=== PATIENT | female | born 1985 | race Caucasian/White ===

== ENCOUNTER 2022-02-18 10:47 | Outpatient (CLI) | payer MEDICAID, SELFPAY ==
--- NOTE | 2022-02-18 11:00 | CRLHL7_ITS ---
For Patients: As a result of the Century Cures Act, medical imaging exams and procedure reports are released immediately into your electronic medical record. You may view this report before your referring provider. If you have questions, please contact your health care provider. CLINICAL HISTORY: Rt side pelvic pain Lost IUD strings TECHNIQUE: 2D solano scale and color Doppler images were acquired of the pelvis using a transvaginal approach. FINDINGS: On transvaginal imaging, the myometrium has a normal uniform echotexture. Intrauterine device is located within the endometrial canal. Cervical nabothian cysts are incidentally noted. The uterus measures 9.7 x 6.1 x 4.9 cm. The left ovary measures 2.4 x 1.4 x 1.6 cm in size and the right ovary measures 3.8 x 1.8 x 1.9 cm. The ovaries demonstrate normal arterial and venous blood flow on color Doppler analysis. There are no suspicious fluid collections within the cul-de-sac. IMPRESSION: Intrauterine device located within the endometrial canal. Normal ovaries. No adnexal mass or excess free-fluid. Dictated by Pramod Ernandez MD @ 02/18/2022 12:05:53 PM (Electronically Signed)
== END 2022-02-18 10:48 | disposition home or self-care (01) ==
LOC: US 10:49
PROVIDERS: PCP Physician Assistant; Visit Provider Physician Assistant
DX: R10.2 Pelvic and perineal pain (principal)
CPT/HCPCS: 76830

== ENCOUNTER 2022-05-13 15:33 | Outpatient (CLI) | payer MEDICAID, SELFPAY ==
[2022-05-13 21:48] LABS: Chloride* 103 mmol/L (96-114); Potassium* 4.2 mmol/L (3.6-5.1); Sodium* 139 mmol/L (135-149)
[2022-05-13 21:51] LABS: Creatinine* 0.7 mg/dL (0.5-1.5); Estimated Glomerular Filt Rate 116 ml/min
[2022-05-13 21:52] LABS: Blood Urea Nitrogen* 12 mg/dL (5-24); Calcium* 9.2 mg/dL (8.4-10.6); Carbon Dioxide* 29 mmol/L (20-32); Glucose* 74 mg/dL (60-115)
[2022-05-13 22:39] LABS: Vitamin B12* 394 pg/mL (243-894)
== END 2022-05-13 15:34 | disposition home or self-care (01) ==
PROVIDERS: PCP Physician Assistant; Visit Provider Emergency Medicine
DX: R53.83 Other fatigue (principal); R68.82 Decreased libido; R63.5 Abnormal weight gain
CPT/HCPCS: 80048; 82607; 84443

== ENCOUNTER 2022-06-19 20:22 | Outpatient (CLI) | payer MEDICAID, SELFPAY ==
--- NOTE | 2022-06-29 13:02 | W.PM.SLEEP ---
Sleep Study Details Details Interpreting Provider: Savage Kumar MD Date of Sleep Study: 06/19/22 Sleep Study Details: STUDY TYPE:? Hospital ? BMI:? 22.2 ORDERING PROVIDER:? Chris INDICATION:? Concerns about sleep apnea ? SLEEP SUMMARY:? Sleep time 333 minutes, efficiency 73.6, arousal index 10.8 RESPIRATORY SUMMARY:? Mean oxygen awake 95 asleep 95 minimum 67, 0.9 minutes oxygen between 80 and 88% AHI 4, RDI 5.6, supine AHI 5.2 supine REM AHI 0 Nonsupine AHI 3.1 PERIODIC LIMB MOVEMENTS OF SLEEP:? None CARDIAC:? Asleep 74 awake 69 occasional PVCs noted IMPRESSION:? While the AHI is within normal limits, the RDI is 5.6 which is consistent with mild obstructive sleep apnea. There is some supine position dependency. RECOMMENDATION: If the patient is symptomatic treatment could consist of AutoSet CPAP at a pressure of 4-17 versus a dental appliance. Airway expansion surgery as a potential option
== END 2022-06-19 20:23 | disposition home or self-care (01) ==
PROVIDERS: PCP Physician Assistant; Visit Provider Internal Medicine
DX: G47.33 Obstructive sleep apnea (adult) (pediatric) (principal)
CPT/HCPCS: 95810

== ENCOUNTER 2022-08-26 09:41 | Outpatient (CLI) | payer OTHER, SELFPAY | END 2022-08-26 09:42 | disposition home or self-care (01) | PROVIDERS: PCP Physician Assistant Medical; Visit Provider Physician Assistant Medical | DX: D72.819 Decreased white blood cell count, unspecified (principal); R68.82 Decreased libido; R63.5 Abnormal weight gain; R14.0 Abdominal distension (gaseous); N12 Tubulo-interstitial nephritis, not specified as acute or chronic | CPT/HCPCS: 80053; 82306; 82670; 82784; 83690; 84403; 86003; 86364 ==

== ENCOUNTER 2023-06-21 15:39 | Outpatient (CLI) | payer BC, SELFPAY | END 2023-06-21 15:40 | disposition home or self-care (01) | PROVIDERS: PCP Family Medicine; Visit Provider Orthopaedic Surgery | DX: M25.40 Effusion, unspecified joint (principal); M25.571 Pain in right ankle and joints of right foot | CPT/HCPCS: 87070; 87075; 87205; 89051; 89060 ==

== ENCOUNTER 2024-09-07 12:09 | Outpatient (CLI) | payer BC, SELFPAY | END 2024-09-07 12:10 | disposition home or self-care (01) | PROVIDERS: PCP Family Medicine; Visit Provider Family Medicine | DX: N92.0 Excessive and frequent menstruation with regular cycle (principal); Z79.899 Other long term (current) drug therapy | CPT/HCPCS: 82306; 84443 ==

== ENCOUNTER 2024-09-25 12:38 | Outpatient (CLI) | payer BC, SELFPAY ==
[2024-09-25 13:26] VITALS: BP 136/78; PULSE 88; RESP 18
--- NOTE | 2024-09-25 13:59 | W.PM.STED ---
Stress Test Note Date Date of test: 09/25/24 Providers Primary care provider: Hipolito King Stress test physician: Lawson Burrell Stress Test Note Stress test ordered: Stress Echo Indication for test: CHEST PAIN Results discussion: Patient is a very nice 38-year-old female who is referred for evaluation of chest pain, cardiac stress test medical history report is reviewed. I discussed with her the risks benefits and side effects of the test, she would like to proceed, pretest EKG shows normal sinus rhythm. Next brother ventricular rate of 59 blood pressure 122 and 78, no acute ST wave changes. Standard Mihai protocol is employed over a time course of 12 minutes and 32 seconds, there are no dysrhythmias, she did not develop any chest pain, test is terminated because of fulfillment of protocol, during this test there is no ST wave changes suggestive of ischemia. Preliminary tech report was negative on the stress echo. Impression: Negative electrographic portion of stress echo, subjectively negative also, exercise tolerance was felt to be good Follow up suggested: Follow-up with primary care physician is suggested, for interpretation of results, echo portion will be reviewed by Cardiology clinical correlation with these will be needed. Were no complications left this testing facility in good condition
== END 2024-09-25 12:39 | disposition home or self-care (01) ==
LOC: STRESS 12:38
PROVIDERS: PCP Family Medicine; Visit Provider Family Medicine
DX: R07.9 Chest pain, unspecified (principal); R53.83 Other fatigue
CPT/HCPCS: 93016; 93325; 93351

== ENCOUNTER 2024-11-19 09:09 | Outpatient (CLI) | payer BC, SELFPAY | END 2024-11-19 09:10 | disposition home or self-care (01) | PROVIDERS: PCP Family Medicine; Visit Provider Physician Assistant | DX: R61 Generalized hyperhidrosis (principal); R68.82 Decreased libido | CPT/HCPCS: 82670; 83001; 84270; 84402; 84403 ==